=== PATIENT | male | born 1950 | race Caucasian/White ===

== ENCOUNTER 2018-07-31 07:22 | Day surgery (SDC) | payer OTHER ==
[~2018-07-31] VITALS: Ht 170.2 cm; Wt 65.8 kg
[2018-07-31 07:38] VITALS: BP 117/71
[2018-07-31 10:38] VITALS: BP 115/69
== END 2018-07-31 10:50 | disposition home or self-care (01) ==
LOC: DS 07:22 → OR 07:30 → GI 07:30 → DS 10:50
PROVIDERS: Internal Medicine
PROC: 0DJD8ZZ Inspection of Lower Intestinal Tract, Via Natural or Artificial Opening Endoscopic (ICD-10-PCS; principal; 2018-07-31 07:30)
DX: K57.30 Diverticulosis of large intestine without perforation or abscess without bleeding (principal); K59.00 Constipation, unspecified; K40.90 Unilateral inguinal hernia, without obstruction or gangrene, not specified as recurrent; J45.909 Unspecified asthma, uncomplicated; F17.210 Nicotine dependence, cigarettes, uncomplicated; F79 Unspecified intellectual disabilities; F84.0 Autistic disorder; F31.9 Bipolar disorder, unspecified; Z68.21 Body mass index [BMI] 21.0-21.9, adult
CPT/HCPCS: 45378; 82962; G0500; J1200; J1610; J2250; J2310; J3010; J3490